=== PATIENT | female | born 2000 | race Caucasian/White ===

== ENCOUNTER 2021-03-20 15:24 | Emergency (ER) | payer OTHER ==
[~2021-03-20] VITALS: Ht 157.5 cm; Wt 45.4 kg
[2021-03-20 15:51] VITALS: BP 112/71
[2021-03-20 16:12] LABS: URINE BILIRUBIN NEGATIVE (Negative); URINE BLOOD NEGATIVE (Negative); URINE CLARITY CLOUDY; URINE COLOR YELLOW; URINE GLUCOSE-RANDOM* NEGATIVE (Negative); URINE KETONES NEGATIVE (Negative); URINE LEUKOCYTES-REFLEX NEGATIVE (Negative); URINE NITRITE-REFLEX NEGATIVE (Negative); URINE PROTEIN (DIPSTICK) NEGATIVE (Negative); URINE UROBILINOGEN 0.2 E.U./dl (0.2-1.0)
== END 2021-03-20 16:20 | disposition home or self-care (01) ==
LOC: ER 15:24
PROVIDERS: Nurse Practitioner Family; Student in an Organized Health Care Education/Training Program
DX: U07.1 COVID-19 (principal); Z32.02 Encounter for pregnancy test, result negative